=== PATIENT | male | born 1990 | race Hispanic/Latino ===

== ENCOUNTER 2016-08-29 02:55 | Inpatient (IN) ==
[2016-08-29 03:49] LABS: MANUAL DIFF NEEDED? NO
[2016-08-29 03:51] LABS: BASO% 0.2 % (0.0-0.8); EOS# 0.03 X1000 (0.0-0.7); EOS% 0.5 % (0.0-10.0); HEMATOCRIT 40.8 % (42.0-52.0); HEMOGLOBIN 13.9 g/dL (14.0-18.0); LYMPH# 2.03 X1000 (1.2-3.4); LYMPH% 31.9 % (20.5-51.1); MCH 29.4 PG (27-31); MCHC 34.1 g/dL (33-37); MCV 86.4 FL (81-99); MONO# 0.48 X1000 (0.11-0.59); MONO% 7.5 % (1.7-9.3); MPV 10.3 FL (7.4-10.4); NEUT% 59.9 % (42.2-75.2); PLT 212 X1000 (130-400); RBC 4.72 XMIL (4.7-6.1)
[2016-08-29 04:04] LABS: AGAP 13; ALBUMIN 4.6 g/dL (3.5-5.0); ALKALINE PHOSPHATASE 70 U/L (32-122); BUN 19 mg/dL (8-22); CALCIUM 9.2 mg/dL (8.8-10.2); CHLORIDE 102 mmol/L (98-107); COSMO 282; GOT 22 U/L (10-34); GPT 11 U/L (10-44); POTASSIUM 3.4 mmol/L (3.5-5.1); SODIUM 139 mmol/L (136-145); TCO2 24 mmol/L (25-35); TOTAL BILIRUBIN 0.42 mg/dL (0.20-1.00); TOTAL PROTEIN 7.6 g/dL (6.3-8.3)
[2016-08-29 04:27] LABS: UR AMPHETAMINES QUAL NONE DETECTED (NONE DETECT); UR BARBITUATES QUAL NONE DETECTED (NONE DETECT); UR BENZODIAZEPIN QUAL NONE DETECTED (NONE DETECT); UR CANNABINOIDS QUAL NONE DETECTED (NONE DETECT); UR COCAINE QUAL NONE DETECTED (NONE DETECT); UR METHADONE QUAL NONE DETECTED (NONE DETECT); UR OPIATES QUAL NONE DETECTED (NONE DETECT); UR OXYCODONE QUAL NONE DETECTED (NONE DETECT); UR PCP QUAL NONE DETECTED (NONE DETECT)
[2016-08-29 04:28] LABS: ACETAMINOPHEN < 1.2 ug/mL (10-30)
--- NOTE | 2016-08-29 05:35 | EKG Report ---
Test Performed on : 08/29/2016 03:53:13 AM Test Reason : overdose Blood Pressure : / mmHG Vent. Rate : 109 BPM Atrial Rate : 109 BPM P-R Int : 158 ms QRS Dur : 108 ms QT Int : 370 ms P-R-T Axes : 059 003 034 degrees QTc Int : 498 ms Sinus tachycardia. Possible Left atrial enlargement Incomplete right bundle branch block Borderline ECG No previous ECGs available Unconfirmed Result
--- NOTE | 2016-08-29 09:32 | PROVIDER DOCUMENTATION ---
[id number] Abuse/Overdose - General Chief Complaint: Overdose Stated Complaint: POSSIBLE OD Time Seen by Provider: 08/29/16 03:14 Source: post anesthesia nurse Allergies/Adverse Reactions: Allergies Allergy/AdvReac Type Severity Reaction Status Date / Time No Known Allergies Allergy Verified 08/29/16 03:23 Home Medications: Home Medication List Medication Instructions Recorded Confirmed Last Taken Type NK [No Home Medications] 08/29/16 08/29/16 Unknown History - History of Present Illness-Drug/Alcohol Nature of Presenting Problem: 26 y/o HM that presents to ED via EMS with AMS. Pt unable to provide accurate information due to condition. [employer] service utilized. Severity: reports: moderate Situational problems related to:: reports: other (unknown) Psychiatric Complaints: reports: other (unknown) Associated Symptoms: reports: other (unknown) - Substance Abuse Substance Use: reports: other (unknown) - Overdose Suicide Risk Assessment: male sex Clinician's estimation of suicide risk?: low risk Review of Systems - Adult - REVIEW OF SYSTEMS - ADULT ROS:: unobtainable per condition Constitutional: reports: other Past History - Adult - PAST MEDICAL HISTORY-ADULT Review of Records: reports: Old Records Reviewed, Nursing Assessment Review, Medications Reviewed - IMMUNIZATION STATUS Childhood Immunizations: See Nurse Assessment Flu Vaccine: See Nurse Assessment - SOCIAL HISTORY Smoking: other (unknown) Substance Use: other (unknown) Physical Exam-General - PHYSICAL EXAM-ADULT Initial Vital Signs Reviewed: Yes - CONSTITUTIONAL General Appearance: appears well, alert, no apparent distress, thin, slow to respond. negative: obtunded, combative - EYES Eyes: PERRL/EOMI, pink conjunctivae. negative: sclera injected, scleral icterus - HEAD, EARS, NOSE, MOUTH & THROAT HENMT: normocephalic/atraumatic, moist mucous membranes. negative: pharyngeal erythema, tonsillar exudate - NECK Neck: non-tender, full range of motion, supple. negative: C-spine tenderness - RESPIRATORY Respiratory: chest non-tender, lungs clear. negative: crackles, rales, rhonchi , stridor, wheezing - CARDIOVASCULAR Cardiovascular: normal peripheral pulses, regular rate, rhythm, no murmur. negative: irregularly irregular - GASTROINTESTINAL (ABDOMEN) Abdominal Exam: normal bowel sounds, non tender, soft. negative: distended, guarding, rigid, rebound, tenderness - LYMPHATIC Lymphatic: no adenopathy - MUSCULOSKELETAL Back Exam: normal inspection, no CVA tenderness. negative: swelling, vertebral tenderness Extremity: non-tender, normal gait. negative: slow capillary refill, swelling, tenderness - SKIN Integumentary: normal color, normal turgor, warm/dry. negative: swelling, tenderness - NEUROLOGIC Neurologic: spike maker II-XII nml as tested, no motor/sensory deficits. negative: focal weakness, motor weakness, sensory deficit - PSYCHIATRIC Psych/Mental Status: anxious, disheveled. negative: normal thought content, normal thought process Progress - PLAN OF CARE/RESULTS Progress/Plan/Lab Results: Vital Signs - 8 hr 08/29/16 05:55 08/29/16 08:17 Temperature 98.5 F Pulse Rate 106 H 117 H Respiratory Rate 14 18 Blood Pressure 130/87 O2 Sat by Pulse Oximetry 99 Laboratory Results - last 24 hr 08/29/16 08/29/16 08/29/16 03:10 03:10 03:10 WBC 6.36 RBC 4.72 Hgb 13.9 L Hct 40.8 L MCV 86.4 MCH 29.4 MCHC 34.1 RDW Std Deviation 12.6 Plt Count 212 MPV 10.3 Immature Gran % (Auto) 0.0 Neut % (Auto) 59.9 Lymph % (Auto) 31.9 Carlton % (Auto) 7.5 Eos % (Auto) 0.5 Baso % (Auto) 0.2 Immature Gran # (Auto) 0.00 Neut # (Auto) 3.81 Lymph # (Auto) 2.03 Carlton # (Auto) 0.48 Eos # (Auto) 0.03 Baso # (Auto) 0.01 Sodium 139 Potassium 3.4 L Chloride 102 Carbon Dioxide 24 L Anion Gap 13 BUN 19 Creatinine 0.8 Estimated GFR/1.73 m2 > 60 BUN/Creatinine Ratio 24 Glucose 132 H Calculated Osmolality 282 Calcium 9.2 Total Bilirubin 0.42 AST 22 ALT 11 Alkaline Phosphatase 70 Total Protein 7.6 Albumin 4.6 Globulin 3.0 Albumin/Globulin Ratio 1.5 Vitamin B12 TSH Free T4 Salicylates Urine Opiates Screen Ur Oxycodone Screen Ur Methadone, Qual Acetaminophen Ur Barbiturates Screen Ur Phencyclidine Scrn Ur Amphetamines Screen U Benzodiazepines Scrn Urine Cocaine Screen U Cannabinoids Screen Plasma/Serum Ethyl Alc 08/29/16 08/29/16 08/29/16 03:10 03:10 03:55 WBC RBC Hgb Hct MCV MCH MCHC RDW Std Deviation Plt Count MPV Immature Gran % (Auto) Neut % (Auto) Lymph % (Auto) Carlton % (Auto) Eos % (Auto) Baso % (Auto) Immature Gran # (Auto) Neut # (Auto) Lymph # (Auto) Carlton # (Auto) Eos # (Auto) Baso # (Auto) Sodium Potassium Chloride Carbon Dioxide Anion Gap BUN Creatinine Estimated GFR/1.73 m2 BUN/Creatinine Ratio Glucose Calculated Osmolality Calcium Total Bilirubin AST ALT Alkaline Phosphatase Total Protein Albumin Globulin Albumin/Globulin Ratio Vitamin B12 440 TSH 2.95 Free T4 1.40 Salicylates < 3.00 L Urine Opiates Screen NONE DETECTED Ur Oxycodone Screen NONE DETECTED Ur Methadone, Qual NONE DETECTED Acetaminophen < 1.2 L Ur Barbiturates Screen NONE DETECTED Ur Phencyclidine Scrn NONE DETECTED Ur Amphetamines Screen NONE DETECTED U Benzodiazepines Scrn NONE DETECTED Urine Cocaine Screen NONE DETECTED U Cannabinoids Screen NONE DETECTED Plasma/Serum Ethyl Alc Orders Category Date Time Status Admit - [facility] - [facility] Routine AdmDCTranf 08/29/16 11:54 Ordered Activity - Up with Assistance ORDERED Care 08/29/16 11:54 Active Apply Mechanical Device [QM] ORDERED Care 08/29/16 11:54 Active Cardiac Monitoring DIRECTED Care 08/29/16 04:06 Completed IV Insertion ORDERED Care 08/29/16 03:29 Completed Intake and Output-Strict ORDERED Care 08/29/16 11:54 Active Vital Signs Order Q1H Care 08/29/16 11:54 Active [facility] Stat Cons 08/29/16 10:06 Ordered Psych Screening Routine Cons 08/29/16 10:23 Ordered Social Service Consult Routine Cons 08/29/16 11:54 Active Regular Diet Diet 08/29/16 10:49 Active ACETAMINOPHEN [TDM] Stat Lab 08/29/16 03:10 Completed ALCOHOL BLOOD Stat Lab 08/29/16 03:10 Completed CBC WITH DIFF [HEME] Routine Lab 08/30/16 06:00 Ordered CBC WITH DIFF [HEME] Stat Lab 08/29/16 03:10 Completed CK TOTAL [CHEM] Routine Lab 08/30/16 06:00 Uncollected COMPREHENSIVE METABOLIC PANEL [CHEM] Routine Lab 08/30/16 06:00 Ordered COMPREHENSIVE METABOLIC PANEL [CHEM] Stat Lab 08/29/16 03:10 Completed FREE T4 Stat Lab 08/29/16 03:10 Completed MAGNESIUM [CHEM] Routine Lab 08/30/16 06:00 Ordered PROTIME WITH INR [COAG] Routine Lab 08/30/16 06:00 Ordered PTT [COAG] Routine Lab 08/30/16 06:00 Ordered SALICYLATES [TDM] Stat Lab 08/29/16 03:10 Completed TSH Stat Lab 08/29/16 03:10 Completed UA NIMS W/REFLEX CULT [URINALYSIS] Routine Lab 08/29/16 11:54 Uncollected URINE DRUG SCREEN Stat Lab 08/29/16 03:55 Completed VITAMIN B12 Stat Lab 08/29/16 03:10 Completed 0.9% Sodium Chloride Inj [Ns] 1,000 ml Med 08/29/16 11:54 Active IV 100 mls/hr Fluoxetine [Prozac] Med 08/30/16 09:00 Active 40 mg PO QAM Omeprazole [Prilosec] Med 08/29/16 21:00 Active 40 mg PO BID Omeprazole [Prilosec] Med 08/29/16 10:24 Discontinued 40 mg PO NOW ONE Ondansetron [Zofran] Med 08/29/16 11:54 Active 4 mg IV Q4H PRN PRN Telemetry [OM.EQ] Routine Oth 08/29/16 11:54 Active EKG [EKG] Routine Ther 08/30/16 08:00 Ordered EKG [EKG] Stat Ther 08/29/16 03:29 Draft Transfer/Admit Order [TRANSFER] Routine Transfer 08/29/16 10:46 Completed Result Diagrams: 08/29/16 03:10 08/29/16 03:10 - CONSULTS/PCP/HOSPITALIST Notification #1 *Consult/PCP/Hospitalist*: Dr. Sánchez Time Discussed: 09:33 Consult Disposition: Will see in ED, Admit Departure - Departure Time of Disposition Decision: 09:32 DIAGNOSIS: Encephalopathy Disposition: ADMITTED INPATIENT 09 Certified Medical Emergency: Emergent Condition: Good
[2016-08-29] MEDS ORDERED: PRILOSEC PO ONE (10:24)
--- NOTE | 2016-08-29 11:22 | HISTORY AND PHYSICAL ---
PRIMARY CARE PROVIDER: No one. CHIEF COMPLAINT: Possible overdose with altered mental status. HISTORY OF PRESENT ILLNESS: Mr. Pelaez is a 26-year-old, male, who apparently has no past medical history except for he admits to depression for the last 1 year. He has been living with his girlfriend, who is not at the bedside. He states that around 11:00 last night, he took anywhere from 12-15 Advil tablets in attempt for suicide. He had been in a fight with his family in [place] and also in a fight with his girlfriend. The girlfriend called an ambulance because she saw that he had taken the Advil. The patient is requesting to go home but given the fact that he was attempting suicide, he will be admitted for close monitoring and a psych evaluation ordered and Reyna Pagan consult ordered. We will admit him to the ICU for close monitoring. The side effects of overdosing on NSAIDs were described to him, including kidney failure, gastrointestinal problems such is GI bleed. The patient denies any history of illicit drug use, although he does state that he smoked marijuana once about 6-8 weeks ago and did not like it. His urine drug screen is negative. His alcohol level is negative. He did state that he had a suicidal attempt about 3 weeks ago. PAST MEDICAL HISTORY: Depression x1 year. SURGICAL HISTORY: None. SOCIAL HISTORY: Suicide attempt 3 weeks ago. Occasional alcohol use and marijuana once about 6-8 weeks ago. Lives at home with his girlfriend. FAMILY HISTORY: Noncontributory. REVIEW OF SYSTEMS: Were complete and all were negative except for those mentioned in the above HPI. History was obtained by Dr. Sánchez and relayed to me. ALLERGIES: No known drug allergies. HOME MEDICATIONS: None. LABORATORY DATA: White blood cells 6000, hemoglobin 13, hematocrit 40, platelet count 212,000. Sodium 139, potassium 3.4, BUN 19, creatinine 0.9, glucose 132, calcium 9.2, bilirubin 0.42, AST 22, ALT 11. Urine drug screen negative. Less than 3 salicylates, less than 1.2 acetaminophen, 0 alcohol. IMAGING: None. PHYSICAL EXAMINATION: VITAL SIGNS: Temperature 98.7 degrees, heart rate 106, respiratory rate 14, blood pressure 130/87, O2 saturation 99% on room air. GENERAL: Mr. Pelaez is a 26-year-old, male, who does not speak Frisian with interpretation performed by Dr. Sánchez. He is in no acute distress. He is requesting to go home. He answers questions appropriately. HEENT: Atraumatic, normocephalic. Pupils equal, round, reactive to light. Extraocular movements are intact. Mucous membranes are moist. NECK: No JVD or carotid bruits noted. CARDIOVASCULAR: S1, S2. Tachycardic rate and rhythm. No rubs, gallops, murmurs. PULMONARY: Clear to auscultation. Bilateral breath sounds. No accessory muscle use or work of breathing noted. Soft, nontender, nondistended. Positive bowel sounds x4. EXTREMITIES: No edema noted. Plus 2 dorsalis and radial pulses. NEURO: Oriented x4. Moves all extremities equally. SKIN: Warm, dry, intact. PSYCH: According to the ER physician, patient did show symptoms of hallucinations but these symptoms have resolved prior to this assessment. ASSESSMENT AND PLAN: 1. Suicide attempt at around 11:00 last night. He took April 28 Advil due to problems with family in [place] and had a fight with his girlfriend. Right now, he stressing because he wants to leave, saying that he needs to work. We will start him on Prilosec for the risk of GI complications. We will do some IV fluid hydration for the kidneys. The patient was explained the risk and side effects of taking too much Advil. Reyna Pagan has been consulted and a psychiatric evaluation has been consulted. We will transfer to ICU for suicidal watch. 2. Depression x1 year. We will start on Prozac and follow up with Reyna Pagan recommendations. 3. Gastrointestinal prophylaxis. Proton pump inhibitor. 4. Deep venous thrombosis prophylaxis. Sequential compression devices. Dictated by KAMILLE Sams for Rob Almaguer MD cc: KAMILLE Sams MD
[2016-08-29 11:35] LABS: FREE T4 1.4 ng/dL (0.93-1.70)
[2016-08-29] MEDS ORDERED: NS 1,000 ML IV SCH (11:54)
[2016-08-29] MEDS ORDERED: ZOFRAN IV PRN (11:54)
[2016-08-29 14:00] VITALS: BP 137/79
[2016-08-29 16:06] LABS: URINE CULTURE NEEDED? NO; URINE MICRO REVIEW NEEDED? NO; URINE SOURCE CLEAN CATCH
[2016-08-29 16:09] LABS: BILIRUBIN URINE NEGATIVE (NEGATIVE); BLOOD URINE SMALL (NEGATIVE); COLOR YELLOW; GLUCOSE URINE NEGATIVE (NEGATIVE); LEUKOCYTES URINE NEGATIVE (NEGATIVE); NITRITE URINE NEGATIVE (NEGATIVE); PH URINE 5.5; PROTEIN URINE TRACE mg/dL (NEGATIVE); SP GRAVITY URINE 1.033; TURBIDITY URINE CLEAR (CLEAR); UR EPITHELIAL CELLS <10 /HPF (<10); URINE BACTERIA NEGATIVE /HPF; URINE RBC <10 /HPF (<10); URINE WBC <10 /HPF (<10); UROBILINOGEN URINE NORMAL (NORMAL)
[2016-08-29] MEDS ORDERED: PRILOSEC PO SCH (21:00)
[2016-08-30] MEDS ORDERED: PROZAC PO SCH (09:00)
== END 2016-08-29 16:05 | disposition left against medical advice (07) ==
LOC: EDBD → ED 02:55 → ICU 11:21
PROVIDERS: ATTEND Internal Medicine